=== PATIENT | female | born 1945 | race Two or more races ===

== ENCOUNTER → 2024-03-16 | Outpatient (CLI) | payer MEDICARE, MEDICAID, SELFPAY ==
[2024-03-16 14:14] LABS: Basophils % (Auto) 0 % (0-2.5); Eosinophils % (Auto) 0 % (0-10); Hematocrit 42.3 % (36.0-46.0); Hemoglobin 14.2 g/dL (12.0-16.0); Immature Granulocytes % (Auto) 0 % (0-0); Immature Granulocytes Auto 0.01 Thou/mm3 (0.00-0.00); Lymphocytes # (Auto) 0.4 Thou/mm3 (1.0-4.8); Lymphocytes % (Auto) 13 % (10-50); Mean Corpuscular HGB Conc 33.6 g/dl (31.0-37.0); Mean Corpuscular Volume 89 fL (80-100); Monocytes # (Auto) 0.4 Thou/mm3 (0.0-0.8); Monocytes % (Auto) 12 % (0-12); Neutrophils # (Auto) 2.3 Thou/mm3 (1.8-7.7); Neutrophils % (Auto) 75 % (37-80); Nucleated Red Blood Cell % 0 /100 WBC (0); RDW Standard Deviation 48.6 fL (36.4-46.3); Red Blood Count 4.74 Miln/mm3 (4.00-5.20)
[2024-03-16 14:22] LABS: Glucose Estimated Average 154 mg/dL (80-131)
[2024-03-16 14:31] LABS: Alanine Aminotransferase 49 U/L (10-49); Albumin/Globulin Ratio 1.6 (1.2-2.2); Alkaline Phosphatase 198 U/L (46-116); Anion Gap 7 (7-16); Aspartate Amino Transferase 91 U/L (0-34); BUN/Creatinine Ratio 19 Ratio (12-20); Bilirubin,Total 0.9 mg/dL (0.3-1.2); Blood Urea Nitrogen 19 mg/dL (9-23); Calcium 9.2 mg/dL (8.3-10.6); Calcium (Corrected) 9.2 mg/dL (8.5-10.1); Carbon Dioxide 29.6 mMol/L (20.0-31.0); Cardiac Risk Estimate 3.1 RATIO (3.7-5.6); Chloride 98 mMol/L (98-107); Cholesterol 135 mg/dL (132-200); Globulin 2.5 gm/dL (2.3-3.5); Glucose 146 mg/dL (74-106); HDL Cholesterol 43 mg/dL (40-60); LDL Cholesterol,Calculated 63 mg/dL (0-130); Magnesium 1.8 mg/dL (1.6-2.6); Osmolality,Calculated 275 (275-295); Potassium 4.7 mMol/L (3.4-5.1); Sodium 135 mMol/L (136-145); Total Protein 6.5 gm/dL (5.7-8.2); Triglycerides 145 mg/dL (30-150); eGFR 57 See Note
[2024-03-16 14:46] LABS: Platelet Count 28 Thou/mm3 (140-440)
[2024-03-16 14:53] LABS: Slide Review Platelets confirmed
[2024-03-16 15:25] LABS: Path Review Blood Smear Sent to Pathologist
[2024-03-26 06:46] LABS: Direct LDL* 48 mg/dL (<100)
== END | disposition home or self-care (01) ==
PROVIDERS: PCP Physician Assistant; Referring Provider Physician Assistant; Visit Provider Physician Assistant
DX: E11.9 Type 2 diabetes mellitus without complications (principal); E55.9 Vitamin D deficiency, unspecified; R42 Dizziness and giddiness
CPT/HCPCS: 36415; 80053; 80061; 81001; 82043; 82306; 82570; 83036; 83721; 83735; 84439; 84443; 85025

== ENCOUNTER → 2024-03-17 | Outpatient (CLI) | payer MEDICARE, MEDICAID, SELFPAY ==
[2024-03-17 12:12] LABS: Collection Type, Urine Clean Catch
[2024-03-17 13:37] LABS: Bacteria,Urine Rare; Bilirubin,Urine Negative (Negative); Blood,Urine Negative (Negative); Clarity,Urine Clear (Clear/Hazy); Color,Urine Yellow (Lt Yel-Yel); Culture Indicated,Urine Not Indicated; Glucose, Urine 4+ (Negative); Ketones,Urine Trace (Negative); Leukocyte Esterase,Urine Negative (Negative); Nitrite,Urine Negative (Negative); Protein,Urine 2+ (Neg - Trace); RBC,Urine 6 /hpf (0-3); Specific Gravity,Urine 1.038 (1.001-1.035); Squamous Epithelial Cell,Urine 2 /hpf (0-5); Urobilinogen,Urine Negative mg/dL (0.0-1.0); WBC,Urine 4 /hpf (0-5)
[2024-03-17 13:48] LABS: Creatinine MALB Rnd Ur 76 mg/dL (30-125)
[2024-03-17 14:14] LABS: Microalbumin Creat Ratio 1029 mg/gCrea (<30); Microalbumin, Random Urine 782 mg/L (0-300)
== END | disposition home or self-care (01) ==
PROVIDERS: PCP Physician Assistant; Referring Provider Physician Assistant; Visit Provider Physician Assistant
DX: E11.9 Type 2 diabetes mellitus without complications (principal); E55.9 Vitamin D deficiency, unspecified; R42 Dizziness and giddiness
CPT/HCPCS: 81001; 82043; 82570

== ENCOUNTER → 2024-11-19 | Outpatient (CLI) | payer MEDICARE, SELFPAY ==
--- NOTE | 2024-11-19 10:20 | XR_ITS ---
Examination: Bone densitometry Date and time of exam:November 19, 2024 1030 hours INDICATIONS: Menopause age 49 Technique: Lumbar spine and hip total bone mineralization values of an calculated. Peak reference and age match control results have been displayed. Findings: Lumbar spine total bone mineralization is0.913 gm/cm2. This is 1.2 standard deviations below peak reference. This is 1.5 standard deviations above age-matched controls. Hip total bone mineralization is 0.820 gm/cm2 This is 1.0 standard deviations below peak reference. This is 1.1 standard deviations above age-matched controls Impression: There is osteopenia based on lumbar spine measurements. There is osteopenia based on hip measurements
== END | disposition home or self-care (01) ==
PROVIDERS: Referring Provider Family Medicine; Visit Provider Family Medicine
DX: M85.89 Other specified disorders of bone density and structure, multiple sites (principal)
CPT/HCPCS: 77080

== ENCOUNTER 2025-03-19 01:48 | Inpatient (IN) | payer MEDICARE, MEDICAID, SELFPAY ==
[2025-03-19] VITALS (17 sets, daily range): BP systolic 116–142; BP diastolic 52–83; PULSE 62–92; RESP 12–93; TEMP 36.5–36.8; O2SAT 90–100
--- NOTE | 2025-03-19 02:17 | PD.EDURI ---
Upper Respiratory Inf. RME/HPI General Chief Complaint: Flu Like Symptoms Stated Complaint: COUGHING , A LOT OF PHLEGM Time Seen by Provider: 03/19/25 02:29 Arrival date/time: 03/19/25 01:48 RME / HPI RME / HPI Narrative: See [facility] for Dr. Freire's HPI Documentation. Related Data Home Medications ?Medication ?Instructions ?Recorded ?Confirmed Metformin Hcl 1,000 mg PO BID ##0 06/17/12 03/17/21 amlodipine 5 mg tablet 5 mg PO QDAY 03/19/19 03/17/21 losartan 100 mg tablet 100 mg PO QDAY 03/19/19 03/17/21 metoprolol succinate 100 mg 100 mg PO HS 03/19/19 03/17/21 tablet,extended release 24 hr pregabalin 200 mg capsule 200 mg PO BID 03/19/19 03/17/21 atorvastatin 20 mg tablet (Lipitor) 20 mg PO QDAY 03/17/21 03/17/21 cetirizine 10 mg tablet 10 mg PO QDAY 03/17/21 03/17/21 clonazepam 1 mg tablet 1 mg PO HS PRN Anxiety 03/17/21 03/17/21 Allergies Allergy/AdvReac Type Severity Reaction Status Date / Time No Known Allergies Allergy Verified 03/19/21 13:48 Review of Systems Review of Systems Systems Reviewed: All systems reviewed, normal except as documented Past Medical History Past Medical History NEUROLOGIC: Positive Neurological Disorders and Peripheral Neuropathy CARDIAC: Positive Cardiac Disorders ( leaking artery following a salesforce consultant), Hypercholesterolemia and Hypertension GASTROINTESTINAL: Positive Gastrointestinal Disorders, Gastrointestinal Bleed, Ulcer and Gastroesophageal Reflux Disease GENITOURINARY: Positive Genitourinary Disorders (uti x3) MUSCULOSKELETAL: Positive Musculoskeletal Disorders and Arthritis ENT: Positive Cataracts ENDOCRINE: Positive Endocrine Disorders and Diabetes Mellitus Type 2 HEMATOLOGIC: Positive Blood Disorders and Anemia PSYCHO/SOCIAL: Positive Anxiety ED Exam Narrative Physical exam: See [facility] for Dr. Freire's Physical Exam Documentation. Course Quality Measures none Orders Category Date Time Status Admit to Inpatient Status Routine Admission 03/19/25 04:55 Active Patient Condition Routine Admission 03/19/25 04:55 Ordered Activity as Tolerated Routine Care 03/19/25 04:56 Ordered COVID-19 Screening Questionnaire NOW Care 03/19/25 04:11 Active Continuous Pulse Oximetry NOW Care 03/19/25 04:54 Active Decision to Admit X1 Care 03/19/25 04:11 Completed EKG (ED ONLY) *Do not use* NOW Care 03/19/25 02:21 Completed Notify provider NEEDED Care 03/19/25 04:55 Active Saline [Insert IV] NOW Care 03/19/25 02:20 Active Straight [In and Out Catheter] X1 Care 03/19/25 02:20 Active Diet Regular Diet 03/19/25 Breakfast Active EKG (ED Only) Stat Exams 03/19/25 02:21 Draft XR chest 1V portable Stat Exams 03/19/25 02:21 Taken ABG [Arterial Blood Gas] Stat Lab 03/19/25 02:21 Completed BNP [B-Type Natriuretic Peptide] Stat Lab 03/19/25 02:50 Completed Bilirubin,Direct Stat Lab 03/19/25 02:50 Completed Blood Culture (Lab) Stat Lab 03/19/25 02:50 Received CBC Stat Lab 03/19/25 02:50 Completed CMP [Comprehensive Metabolic Panel] Stat Lab 03/19/25 02:50 Completed COVID-19 Antigen (In-House) Stat Lab 03/19/25 03:27 Completed CRP [C-Reactive Protein] Stat Lab 03/19/25 02:50 Completed D-Dimer Stat Lab 03/19/25 02:50 Completed ESR [Sed Rate (ESR)] Stat Lab 03/19/25 02:50 Completed Hemoglobin A1C [Glycohemoglobin w (eAG)] Stat Lab 03/19/25 02:50 Completed Influenza A & B Rapid Panel Stat Lab 03/19/25 03:27 Completed Lactate (Lactic Acid) Stat Lab 03/19/25 02:50 Completed Magnesium Stat Lab 03/19/25 02:50 Completed Procalcitonin Stat Lab 03/19/25 02:50 Completed TSH [Thyroid Stimulating Hormone] Stat Lab 03/19/25 02:50 Completed Troponin I Stat Lab 03/19/25 02:50 Completed UA, C/S IF [Urinalysis, C/S if Indicated] Stat Lab 03/19/25 04:00 Completed Urine Culture Stat Lab 03/19/25 04:00 Received ACETAMINOPHEN w/COD 300-30 [Tylenol w/Cod #3] Med 03/19/25 02:20 Discontinued 2 tab PO X1 ONE Acetaminophen Tab [Tylenol Tab] Med 03/19/25 04:54 Active 650 mg PO Q6H PRN Albuterol/Ipratr Rt Johanna [Duoneb Rt Johanna] Med 03/19/25 07:00 Active 3 ml INH Q6HRRT Albuterol/Ipratr Rt Johanna [Duoneb Rt Johanna] Med 03/19/25 02:20 Discontinued 3 ml INH X1 ONE Azithromycin Inj [Zithromax Inj] 500 mg Med 03/19/25 02:57 Discontinued Sodium Chloride 0.9% 250 ml [Ns] 250 ml IV X1 Docusate Sod [Colace] Med 03/19/25 09:00 Active 100 mg PO QDAY HYDROcodone*/APAP 5/325 [[place] 5/325] Med 03/19/25 04:54 Active 1 tab PO Q4HR PRN MethylPREDNISolone.* [SoluMEDROL Inj] Med 03/19/25 02:20 Discontinued 125 mg IVP X1 ONE Ondansetron Inj [Zofran Inj] Med 03/19/25 04:54 Active 4 mg IVP Q6H PRN Ondansetron Inj [Zofran Inj] Med 03/19/25 02:20 Discontinued 4 mg IVP X1 ONE Pantoprazole Inj [Protonix Inj] Med 03/19/25 09:00 Active 40 mg IVP QDAY cefTRIAXone/D5w 1gm IV premix [Rocephin/D5w 1gm IV Med 03/19/25 02:57 Discontinued premix] 1 gm in 50 ml IV X1 Code Status Routine Oth 03/19/25 04:54 Ordered Oxygen Delivery DAILY RT 03/19/25 04:56 Active Vital Signs Vital signs: Vital Signs Temperature 98.0 F 03/19/25 02:08 Pulse Rate 63 03/19/25 02:08 Respiratory Rate 22 H 03/19/25 02:08 Blood Pressure 129/74 03/19/25 02:08 Pulse Oximetry (%) 90 L 03/19/25 02:08 Oxygen Delivery Method Room Air 03/19/25 02:08 Upper Respiratory Infection MDM Narrative MDM Narrative:: This section includes all my notes and documentations, including HPI, PE, and ED course. Aubrey Freire MD HPI: 79 y/o female with Hx of HTN and Type II DM presents with about 1 week history of worsening cough, productive cough, purulent sputum, and dyspnea. With subjective fever. No other complaints. ROS: All negative except as documented in HPI. Physical Exam: General: Alert and oriented. Hacking cough noted. Hypoxia noted. Eyes: Conjunctivae and lids clear. ENT: No nasal congestion. Pharynx normal. TM normal bilaterally. Neck: Supple. Heart: RRR. Lungs: In respiratory distress. Decreased air movement with bilateral severe wheezing. Abdomen: Soft and nontender. Normal bowel sounds. No distension. No rebound or guarding. Back: No CVA tenderness. Skin: Warm and dry. Neuro: Alert and oriented X 3. I reviewed all diagnostic test results: My interpretation of the EKG is: Sinus rhythm (61 bpm) with right BBB and nonspecific ST-T changes. My interpretation of the chest x-ray is infiltrates. Blood tests remarkable for ESR 80, CRP 6.9. ABG showed pH 7.37, pCO2 46, pO2 58, pHCO3 27. UA showed positive nitrite, positive leukocyte esterase, 5 RBC, 174 WBC, and bacteria. Covid/Influenza are negative. At this point, diagnoses include: Acute Respiratory Failure with Hypoxia Pneumonia UTI Treatment here included: Oxygen DuoNeb Solu-Medrol 125 mg IV Zofran 4 mg IV Rocephin 1 g IV Zithromax 500 mg IV No significant improvement noted. I discussed the case with our hospitalist. About the presentation and exam and diagnostics and treatments here. And need of further care in the hospital. Will accept the patient. Aubrey Freire MD Patient data External records reviewed:: [facility] previous records (Reviewed most recent ED records from 03/16/21. Patient was seen for Acute UTI.) Clinical information provided by:: patient Social determinants that could affect healthcare access:: none Patient has the following chronic illnesses:: Peripheral Neuropathy, Hypercholesterolemia, Hypertension, Gastrointestinal Bleed, Ulcer, Gastroesophageal Reflux Disease, Arthritis, Cataracts, Diabetes Mellitus Type 2, Anemia, Anxiety How is presenting disease/condition affected by chronic disease/condition?: exacerbated by Evaluation data The following diagnostics were reviewed and interpreted by me:: EKG tracing(s) (My interpretation of the EKG is: Sinus rhythm (61 bpm) with right BBB and nonspecific ST-T changes. Aubrey Freire MD) Lab and/or radiology exams considered but not ordered:: None Interpretation Summary: I reviewed all diagnostic test results: My interpretation of the EKG is: Sinus rhythm (61 bpm) with right BBB and nonspecific ST-T changes. My interpretation of the chest x-ray is infiltrates. Blood tests remarkable for ESR 80, CRP 6.9. ABG showed pH 7.37, pCO2 46, pO2 58, pHCO3 27. UA showed positive nitrite, positive leukocyte esterase, 5 RBC, 174 WBC, and bacteria. Covid/Influenza are negative. Medications / Prescriptions Medications or Prescriptions considered but not ordered:: None Medication administrations:: Medication Administration History Acetaminophen (Acetaminophen 325 Mg Tablet) 650 mg PO Q6H PRN PRN Reason: Fever >100.4 or pain 1-3 Stop: 04/18/25 04:53 Hydrocodone Bitart/Acetaminophen (Hydrocodone/Apap 5/325 Tablet) 1 tab PO Q4HR PRN PRN Reason: PAIN SCALE 4-6 (Moderate Stop: 03/24/25 04:53 Albuterol/Ipratropium (Albuterol/Ipratropium (Duoneb) Rt Johanna 3 Ml Nebu) 3 ml INH Q6HRRT TAVO Stop: 04/18/25 06:59 Amlodipine Besylate (Amlodipine Besylate 5 Mg Tablet) 10 mg PO QDAY [facility] Stop: 04/18/25 08:59 Atorvastatin Calcium (Atorvastatin Calcium 10 Mg Tablet) 40 mg PO QDAY [facility] Stop: 04/18/25 08:59 Dextrose (Dextrose 50%-Water Inj 50 Ml Syringe) 25 ml IV Q15MIN PRN PRN Reason: BG 50-70 responsive npo pt Stop: 04/18/25 05:07 Dextrose (Dextrose 50%-Water Inj 50 Ml Syringe) 50 ml IV Q15MIN PRN PRN Reason: BG <50 OR BG <70 & pt unresponsive Stop: 04/18/25 05:07 Docusate Sodium (Docusate Sod 100 Mg Capsule) 100 mg PO QDAY [facility]; Protocol Stop: 04/18/25 08:59 Duloxetine HCl (Duloxetine Hcl 30 Mg Capsule) 30 mg PO QDAY [facility] Stop: 04/18/25 08:59 Glucagon (Glucagon Inj 1 Mg Vial) 1 mg IM Q15MIN PRN PRN Reason: BG <70, and no IV access Heparin Sodium (Porcine) (Heparin Sod Inj 5000 Unit/Ml Vial) 5,000 unit SC Q12HR [facility] Stop: 04/02/25 08:59 Ceftriaxone Sodium/Dextrose (Rocephin/D5w 1gm Iv Premix) 1 gm in 50 mls @ 100 mls/hr IV QDAY [facility] Stop: 03/27/25 08:59 Azithromycin 500 mg/ Sodium (Chloride) 250 mls @ 250 mls/hr IV QDAY [facility] Stop: 03/27/25 08:59 Insulin Human Lispro (Insulin Lispro (Admelog) 1 Unit/0.01 Ml Unit) 0 unit SC ACHS [facility]; Protocol Stop: 04/18/25 07:29 Losartan Potassium (Losartan Potassium 25 Mg Tablet) 100 mg PO QDAY [facility] Stop: 04/18/25 08:59 Metoprolol Succinate (Metoprolol Succinate Xl 25 Mg Tabcr) 100 mg PO HS [facility] Stop: 04/18/25 20:59 Ondansetron HCl (Ondansetron Inj 2 Mg/Ml Inj 2 Ml) 4 mg IVP Q6H PRN; Protocol PRN Reason: NAUSEA OR VOMITING Stop: 04/18/25 04:53 Pantoprazole Sodium (Pantoprazole Inj 40 Mg Vial) 40 mg IVP QDAY [facility] Stop: 04/18/25 08:59 Prednisone (Prednisone 20 Mg Tablet) 40 mg PO QDAY [facility] Stop: 04/18/25 08:59 Pregabalin (Pregabalin 75 Mg Capsule) 150 mg PO TID [facility] Stop: 04/18/25 05:59 Discontinued Medications Acetaminophen/Codeine Phosphate (Acetaminophen W/Cod 300-30 Tablet) 2 tab PO X1 ONE Stop: 03/19/25 02:21 Last Admin: 03/19/25 02:39 Dose: 2 tab Documented By: HOLA Albuterol/Ipratropium (Albuterol/Ipratropium (Duoneb) Rt Johanna 3 Ml Nebu) 3 ml INH X1 ONE Stop: 03/19/25 02:21 Last Admin: 03/19/25 02:57 Dose: 3 ml Documented By: MANUEL Azithromycin 500 mg/ Sodium (Chloride) 250 mls @ 250 mls/hr IV X1 ONE Stop: 03/19/25 03:56 Last Infusion: 03/19/25 05:04 Dose: Infused Documented By: Admin: 03/19/25 03:48 Dose: 250 mls/hr Documented By: HOLA Ceftriaxone Sodium/Dextrose (Rocephin/D5w 1gm Iv Premix) 1 gm in 50 mls @ 100 mls/hr IV X1 ONE Stop: 03/19/25 03:26 Last Infusion: 03/19/25 03:47 Dose: Infused Documented By: Admin: 03/19/25 03:14 Dose: 100 mls/hr Documented By: STORMY Methylprednisolone Sodium Succinate (Methylprednisolone Sod Succ 62.5 Mg/Ml 2ml Vial) 125 mg IVP X1 ONE Stop: 03/19/25 02:21 Last Admin: 03/19/25 02:40 Dose: 125 mg Documented By: HOLA Ondansetron HCl (Ondansetron Inj 2 Mg/Ml Inj 2 Ml) 4 mg IVP X1 ONE; Protocol Stop: 03/19/25 02:21 Last Admin: 03/19/25 02:40 Dose: 4 mg Documented By: HOLA Treatment here from me included: Oxygen DuoNeb Solu-Medrol 125 mg IV Zofran 4 mg IV Rocephin 1 g IV Zithromax 500 mg IV Consultations Consultation(s) initiated? (list below): Yes Consultation #1 (Physician, Specialty, Details): I discussed the case with our hospitalist. About the presentation and exam and diagnostics and treatments here. And need of further care in the hospital. Will accept the patient. Time: 04:03 Diagnosis Upper Respiratory Differential Diagnosis: upper respiratory infection, viral infection, bronchitis, influenza, pharyngitis and other (Pneumonia) Most likely diagnosis given after review of the tests above:: Acute Respiratory Failure with Hypoxia Pneumonia UTI Admission Indicated Admission indicated?: indicated Explain why admission is indicated or not indicated:: Acute Respiratory Failure with Hypoxia Pneumonia UTI Admission Request Was there a request for admission?: Yes Admission Attestation Admission request attestation: Discussed case with Hospitalist service regarding admission. Discussed patients ED course, exam findings, labs, and radiology results. Agreed to accept the patient for admission. Disposition Plan Disposition Plan: Admit Discharge Plan Plan Patient Disposition: Admit Acute Care w/in Hospital Problem List Clinical Impression: Acute respiratory failure with hypoxia, Pneumonia, Acute UTI
--- NOTE | 2025-03-19 02:21 | XR_ITS ---
EXAMINATION: AP chest single view TECHNIQUE: AP portable upright chest single view Date and time: March 19, 2025, 0239 hours, comparison September 18, 2023 INDICATIONS: Shortness of breath coughing beginning 2 days ago. FINDINGS: Mild enlargement cardiac contour Prominent central vascular congestion Pneumonia right base Prominent osteopenia IMPRESSION: Pneumonia right base Mild heart failure
--- NOTE | 2025-03-19 02:21 | EKG_ITS ---
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1945 Requested By: Aubrey Wilder Order Number: [id number] Reading MD: Aubrey Wilder Measurements Intervals [place] Rate: 61 P: 47 PA: 174 QRS: -64 QRSD: 148 T: 16 QT: 463 QTc: 467 Interpretive Statements SINUS RHYTHM RIGHT BUNDLE BRANCH BLOCK [120+ ms QRS DURATION, UPRIGHT V1, 40+ ms S IN I/aVL/V4/V5/V6] LEFT ANTERIOR FASCICULAR BLOCK [QRS AXIS <= -45, QR IN I, RS IN II] MODERATE VOLTAGE CRITERIA FOR LVH, CONSIDER NORMAL VARIANT [MEETS CRITERIA IN ONE OF: R(aVL), S(V1), R(V5), R(V5/V6)+S(V1)] POSSIBLE ANTEROSEPTAL MYOCARDIAL INFARCTION , OF INDETERMINATE AGE [30 ms Q WAVE IN V1-V4] Compared to ECG 03/19/2019 16:42:09 Myocardial infarct finding now present Sinus bradycardia no longer present T-wave abnormality no longer present Possible ischemia no longer present /store/[id number]
[2025-03-19] MEDS: ACETAMINOPHEN w/COD 300-30 TABLET 2 TAB PO (02:39)
[2025-03-19] MEDS: ONDANSETRON INJ 2 MG/ML INJ 2 ML 4 MG IVP (02:40)
[2025-03-19] MEDS: MethylPREDNISolone SOD SUCC 62.5 MG/ML 2ML VIAL 125 MG IVP (02:40)
[2025-03-19] MEDS: ALBUTEROL/IPRATROPIUM (Duoneb) RT SOL 3 ML NEBU INH ×4 (02:57→19:06)
[2025-03-19 03:02] LABS: Lactate (Lactic Acid) 1.8 mMol/L (0.4-2.0)
[2025-03-19 03:10] LABS: Sed Rate (ESR) 80 mm/hr (0-30)
[2025-03-19 03:13] LABS: Basophils # (Auto) 0.0 Thou/mm3 (0.0-0.2); Basophils % (Auto) 0 % (0-2.5); Eosinophils # (Auto) 0.3 Thou/mm3 (0.0-0.5); Eosinophils % (Auto) 4 % (0-10); Hematocrit 41.1 % (36.0-46.0); Hemoglobin 12.8 g/dL (12.0-16.0); Immature Granulocytes Auto 0.01 Thou/mm3 (0.00-0.00); Lymphocytes # (Auto) 1.1 Thou/mm3 (1.0-4.8); Lymphocytes % (Auto) 18 % (10-50); Mean Corpuscular HGB Conc 31.1 g/dl (31.0-37.0); Mean Corpuscular Hemoglobin 25.8 pg (25.0-35.0); Mean Corpuscular Volume 83 fL (80-100); Monocytes # (Auto) 0.6 Thou/mm3 (0.0-0.8); Monocytes % (Auto) 10 % (0-12); Neutrophils # (Auto) 4.1 Thou/mm3 (1.8-7.7); Neutrophils % (Auto) 67 % (37-80); Nucleated Red Blood Cell # 0.00 Thou/mm3 (0.00-0.00); Nucleated Red Blood Cell % 0 /100 WBC (0); Platelet Count 253 Thou/mm3 (140-440); RDW Standard Deviation 53.1 fL (36.4-46.3); Red Blood Count 4.97 Miln/mm3 (4.00-5.20); White Blood Count 6.1 Thou/mm3 (3.6-11.0)
[2025-03-19] MEDS: cefTRIAXone/D5w 1gm IV premix 1 GM/50 ML BAG IV (03:14)
[2025-03-19 03:22] LABS: Base Excess 1 (-3-3); HCO3 27 mEq/L (20-26); Inspired O2, VO2 Liters 2 L/min; Inspired Oxygen, FIO2 21 %; O2 Saturation 90 % (91-98); PCO2 46 mmHg (32.0-48.0); pH, Arterial 7.37 (7.35-7.45)
[2025-03-19 03:24] LABS: Allen Test Performed/OK; PO2 58 mmHg (83-108); Puncture Site Right Radial
[2025-03-19 03:30] LABS: D-Dimer 475 ng/mL (<600)
[2025-03-19 03:32] LABS: Alanine Aminotransferase 19 U/L (10-49); Albumin, Serum 4.9 gm/dL (3.4-4.8); Albumin/Globulin Ratio 1.7 (1.2-2.2); Alkaline Phosphatase 110 U/L (46-116); Anion Gap 10 (7-16); Aspartate Amino Transferase 35 U/L (0-34); BUN/Creatinine Ratio 12 Ratio (12-20); Bilirubin,Direct 0.1 mg/dL (0.0-0.3); Bilirubin,Total 0.6 mg/dL (0.3-1.2); Blood Urea Nitrogen 11 mg/dL (9-23); C-Reactive Protein 6.9 mg/dL (0.0-0.9); Calcium 9.4 mg/dL (8.3-10.6); Calcium (Corrected) 9.4 mg/dL (8.5-10.1); Carbon Dioxide 27.8 mMol/L (20.0-31.0); Chloride 103 mMol/L (98-107); Creatinine (Component) 0.9 mg/dL (0.6-1.3); Globulin 2.9 gm/dL (2.3-3.5); Glucose 130 mg/dL (74-106); Magnesium 1.7 mg/dL (1.6-2.6); Osmolality,Calculated 282 (275-295); Potassium 3.9 mMol/L (3.4-5.1); Procalcitonin 0.08 ng/ml (0.0-0.49); Sodium 141 mMol/L (136-145); Thyroid Stimulating Hormone 4.20 uIU/mL (0.55-4.78); Total Protein 7.8 gm/dL (5.7-8.2); Troponin I < 0.020 ng/mL (0.0-0.045); eGFR > 60 See Note
[2025-03-19 03:40] LABS: Glucose Estimated Average 157 mg/dL (80-131); Hemoglobin A1C 7.1 % Hgb (4.8-6.0)
[2025-03-19] MEDS: AZITHROMYCIN INJ 500 MG in SODIUM CHLORIDE 0.9% 250 ML 250 ML 250 MG IV (03:48)
[2025-03-19 03:49] LABS: COVID-19 Antigen (In-House) Negative (Negative); Influenza A Ag Negative; Influenza B Ag Negative
[2025-03-19 04:39] LABS: Collection Type, Urine Clean Catch
[2025-03-19 04:50] LABS: Bacteria,Urine Rare; Bilirubin,Urine Negative (Negative); Blood,Urine Negative (Negative); Clarity,Urine Turbid (Clear/Hazy); Color,Urine Lt-Yellow (Lt Yel-Yel); Glucose, Urine 4+ (Negative); Hyaline Casts,Urine < 1 /hpf (0-1); Ketones,Urine Negative (Negative); Leukocyte Esterase,Urine Positive (Negative); Nitrite,Urine Positive (Negative); PH,Urine 6.0 (5.0-7.0); Protein,Urine 1+ (Neg - Trace); RBC,Urine 5 /hpf (0-3); Specific Gravity,Urine 1.029 (1.001-1.035); Squamous Epithelial Cell,Urine 5 /hpf (0-5); Urobilinogen,Urine Negative mg/dL (0.0-1.0); WBC,Urine 174 /hpf (0-5)
[2025-03-19 04:51] LABS: Culture Indicated,Urine Yes
--- NOTE | 2025-03-19 05:04 | PD.RESHP ---
Documentation for date of: 03/19/25 HPI History of Present Illness History of present illness: 79 y/o female with Hx of HTN, hypercholesterolemia Type II DM, who lived with an excessive smoker presents with fever, cough, and shortness of breath x 5 days admitted for acute hypoxic respiratory failure. ED Course Summary Vitals: BP 129/74 HR 63 RR22 T 98F O2 90%RA Labs: WBC 6.1 ESR 80 D-dimer 475 A1C 7.1 AST 35 CRP 6.9 Procal 0.08 TSH 4.20 ABG pH 7.37 pCO2 46 pO2 58 (L) HCO3 27 (H) O2 sat 90% (L) UA turbid +1 protein +4 glucose 5 RBC 174 WBC Nitrite+ LE + Imaging: CXR pending read, Resident Rebel read: appears bibasilar pneumonia, hazy infiltrates with bilateral opacities Treatment: azithro 500, ceftriaxone 1g duonebs, zofran, methylprednisone 125, codeine Upon initial examination patient has her daughter in the room, a qualified nurse software engineer advisor was present for uzbek speaking interview. She reports coughing since last Friday (4 days ago) and a wheeze appeared 3 days ago. Her wheezing is worse in the evening. Her cough produces clear mucous. She reports subjective fever at home for 2 days that improved with tylenol. She also endorses a headache. She denies chills, night sweats, chest pain, SOB, hemoptysis, sick contacts, history of heart failure or arrythmias, and denies history of COPD or asthma. However, her who has was a excessive smoker. Her cough has improved with cough syrup, however her wheezing is much worse per the daughter, which is why they decided to bring her in to the hospital. 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 Exam Vital Signs Temp Pulse Resp BP Pulse Ox O2 Del Method O2 Flow Rate 98.2 F 66 20 138/68 H 94 L Nasal Cannula 2 03/19/25 04:14 03/19/25 04:14 03/19/25 04:14 03/19/25 04:14 03/19/25 04:14 03/19/25 04:14 03/19/25 04:14 Narrative Exam GENERAL APPEARANCE: AOx3. NAD, activity normal for age, well developed/ well nourished, no cyanosis, pallor, or diaphoresis. HEENT: Normocephalic atraumatic, no facial trauma, neck is supple. Lids/conjunctiva normal. Mucous membranes moist, nares normal, lips/teeth normal uvula midline without oral pharyngeal erythema, exudate or swelling TMs normal bilaterally. No lymphangitis/lymphedema. CARDIAC: Regular rate and rhythm, S1+S2 heard. No murmurs, rubs, or gallops noted RESPIRATORY: Bronchial breath sounds and diffuse bilateral wheezes ABDOMINAL: NBS. Soft, ND/NT. No evidence of fluid wave. No pulsatile masses on exam, rebound tenderness, Snow sign or pain over Mcburney's point. MUSCLES/EXTREMITIES: No abnormal range of motion, no swelling. DERM: Warm, pink and dry. No rashes, dermatoses, petechiae or lesions. NEUROLOGICAL: Speech is clear and appropriate. Normal level of consciousness. Gait and coordination are normal. 5/5 strength in all extremities. PSYCH: Normal mood and affect. Judgement/competence is appropriate Results: Labs 03/19/25 05:00 03/19/25 04:07 Labs: Short CBC 03/19/25 Range/Units 02:50 WBC 6.1 (3.6-11.0) Thou/mm3 Hgb 12.8 (12.0-16.0) g/dL Hct 41.1 (36.0-46.0) % Plt Count 253 (140-440) Thou/mm3 BMP 03/19/25 02:50 Sodium 141 Potassium 3.9 Chloride 103 Carbon Dioxide 27.8 BUN 11 Creatinine 0.9 Glucose 130 H Calcium 9.4 Cardiac Enzymes 03/19/25 Range/Units 02:50 Troponin I < 0.020 (0.0-0.045) ng/mL Liver Function 03/19/25 Range/Units 02:50 Total Bilirubin 0.6 (0.3-1.2) mg/dL Direct Bilirubin 0.1 (0.0-0.3) mg/dL AST 35 H (0-34) U/L ALT 19 (10-49) U/L Alkaline Phosphatase 110 (46-116) U/L Albumin 4.9 H (3.4-4.8) gm/dL Urine 03/19/25 Range/Units 04:00 Urine Color Lt-Yellow (Lt Yel-Yel) Urine Clarity Turbid A (Clear/Hazy) Urine pH 6.0 (5.0-7.0) Ur Specific [place] 1.029 (1.001-1.035) Urine Protein 1+ A (Neg - Trace) Urine Glucose (UA) 4+ A (Negative) ABG Interpretation ABG results: 03/19/25 02:21 ABG pH 7.37 ABG pCO2 46 ABG pO2 58 L* ABG HCO3 27 H ABG O2 Saturation 90 L ABG Base Excess 1 Quality Measures Quality Measures VTE prophylaxis Advance care planning discussed with:: patient and child Medications Home Medications and Allergies Home Medications ?Medication ?Instructions ?Recorded ?Confirmed ?Type amlodipine 5 mg tablet 10 mg PO QDAY 03/19/19 03/19/25 History losartan 100 mg tablet 100 mg PO QDAY 03/19/19 03/19/25 History metoprolol succinate 100 mg 100 mg PO HS 03/19/19 03/19/25 History tablet,extended release 24 hr pregabalin 200 mg capsule 150 mg PO BID 03/19/19 03/19/25 History atorvastatin 20 mg tablet (Lipitor) 40 mg PO QDAY 03/17/21 03/19/25 History cetirizine 10 mg tablet 10 mg PO QDAY 03/17/21 03/19/25 History duloxetine 30 mg capsule,delayed 30 mg PO QDAY 03/19/25 03/19/25 History release empagliflozin 12.5 mg-metformin ER 1 tab PO BID 03/19/25 03/19/25 History 1,000 mg tablet,extended rel 24 hr (Synjardy XR) omeprazole 40 mg capsule,delayed 40 mg PO QDAY 03/19/25 03/19/25 History release Allergies Allergy/AdvReac Type Severity Reaction Status Date / Time No Known Allergies Allergy Verified 03/19/21 13:48 Visit Medications Acetaminophen (Acetaminophen 325 Mg Tablet) 650 mg PO Q6H PRN PRN Reason: Fever >100.4 or pain 1-3 Stop: 04/18/25 04:53 Hydrocodone Bitart/Acetaminophen (Hydrocodone/Apap 5/325 Tablet) 1 tab PO Q4HR PRN PRN Reason: PAIN SCALE 4-6 (Moderate Stop: 03/24/25 04:53 Albuterol/Ipratropium (Albuterol/Ipratropium (Duoneb) Rt Johanna 3 Ml Nebu) 3 ml INH Q6HRRT [facility] Stop: 04/18/25 06:59 Docusate Sodium (Docusate Sod 100 Mg Capsule) 100 mg PO QDAY [facility]; Protocol Stop: 04/18/25 08:59 Heparin Sodium (Porcine) (Heparin Sod Inj 5000 Unit/Ml Vial) 5,000 unit SC Q12HR [facility]AVO Stop: 04/02/25 08:59 Ceftriaxone Sodium/Dextrose (Rocephin/D5w 1gm Iv Premix) 1 gm in 50 mls @ 100 mls/hr IV QDAY [facility] Stop: 03/27/25 08:59 Azithromycin 500 mg/ Sodium (Chloride) 250 mls @ 250 mls/hr IV QDAY [facility] Stop: 03/27/25 08:59 Ondansetron HCl (Ondansetron Inj 2 Mg/Ml Inj 2 Ml) 4 mg IVP Q6H PRN; Protocol PRN Reason: NAUSEA OR VOMITING Stop: 04/18/25 04:53 Pantoprazole Sodium (Pantoprazole Inj 40 Mg Vial) 40 mg IVP QDAY [facility] Stop: 04/18/25 08:59 Prednisone (Prednisone 20 Mg Tablet) 40 mg PO QDAY [facility] Stop: 04/18/25 08:59 Discontinued Medications Acetaminophen/Codeine Phosphate (Acetaminophen W/Cod 300-30 Tablet) 2 tab PO X1 ONE Stop: 03/19/25 02:21 Last Admin: 03/19/25 02:39 Dose: 2 tab Albuterol/Ipratropium (Albuterol/Ipratropium (Duoneb) Rt Johanna 3 Ml Nebu) 3 ml INH X1 ONE Stop: 03/19/25 02:21 Last Admin: 03/19/25 02:57 Dose: 3 ml Azithromycin 500 mg/ Sodium (Chloride) 250 mls @ 250 mls/hr IV X1 ONE Stop: 03/19/25 03:56 Last Infusion: 03/19/25 05:04 Dose: Infused Ceftriaxone Sodium/Dextrose (Rocephin/D5w 1gm Iv Premix) 1 gm in 50 mls @ 100 mls/hr IV X1 ONE Stop: 03/19/25 03:26 Last Infusion: 03/19/25 03:47 Dose: Infused Methylprednisolone Sodium Succinate (Methylprednisolone Sod Succ 62.5 Mg/Ml 2ml Vial) 125 mg IVP X1 ONE Stop: 03/19/25 02:21 Last Admin: 03/19/25 02:40 Dose: 125 mg Ondansetron HCl (Ondansetron Inj 2 Mg/Ml Inj 2 Ml) 4 mg IVP X1 ONE; Protocol Stop: 03/19/25 02:21 Last Admin: 03/19/25 02:40 Dose: 4 mg Assessment & Plan Plan 79 y/o female with Hx of HTN, hypercholesterolemia, Type II DM, who lived with an excessive smoker presents with fever, cough, and shortness of breath x 5 days admitted for acute hypoxic respiratory failure. #AHRF most likely 2/2 #Bronchitis Patient denies history of COPD or asthma, wheezing is worse at night than the morning. Lived with a smoker for many decades. On physical exam bronchial breath sounds and diffuse bilateral wheezes. ABG pH 7.37 pCO2 46 pO2 58 (L) HCO3 27 (H) O2 sat 90% (L). Plan: -Ceftriaxone 1g IV QD (03/19 - -Azithromycin 500 (03/19 - -Duonebs Q6 -Prednisone 40mg PO QD -FUP blood cx:___ #UTI - asymptomatic Patient did not endorse any dysuria. Is taking synjardy. UA turbid +1 protein +4 glucose 5 RBC 174 WBC Nitrite+ LE +. Plan: -Ceftiaxone will cross cover -FUP Urine cx:___ #HTN Plan: -Continue home amlodipine 10mg P OQD -Losartan 100mg PO QD -Metoprolol 100mg PO HS #T2DM A1C 7.1. Patient thinks she is pre-diabetic. Plan: -Education -ISS #Hypercholesterolemia Plan: -Continue Atorvastatin 40mg PO QD #Neuropathy Has neuronal foot pain and itching Plan: -Continue home pregabalin 150mg TID -Continue home duloxetine 30mg PO QD Health Maintenance: Code status: Full Code DVT prophylaxis: Heparin SubQ GI prophylaxis: Protonix 40 Diet: Carb consistent [place]: None Lines: PIV Supplemental O2: NC PRN [facility] Patient seen and reviewed with attending Dr. Sharp. Note written by Gerald Luque MD PGY-1 Attending Provider Attestation/Addendum After examination of the patient and review of the clinical data I feel that this patient needs admission to the hospital for further treatment/evaluation. Plan of care discussed with patient and is in agreement. I Ovidio Sharp MD, attest that I was physically present for oscar portions of evaluation, and examined patient, labs and imagings and plan of care were discussed with IM residents team, and I agree with the findings and plans documented above.
[2025-03-19 05:23] LABS: B-Type Natriuretic Peptide 44 pg/mL (0-100)
[2025-03-19] MEDS: PREGABALIN 75 MG CAPSULE 150 MG PO ×3 (06:15→21:15)
[2025-03-19 06:22] LABS: Basophils # (Auto) 0.0 Thou/mm3 (0.0-0.2); Basophils % (Auto) 0 % (0-2.5); Eosinophils # (Auto) 0.2 Thou/mm3 (0.0-0.5); Eosinophils % (Auto) 3 % (0-10); Hematocrit 38.9 % (36.0-46.0); Hemoglobin 12.2 g/dL (12.0-16.0); Immature Granulocytes Auto 0.01 Thou/mm3 (0.00-0.00); Lymphocytes # (Auto) 1.6 Thou/mm3 (1.0-4.8); Lymphocytes % (Auto) 22 % (10-50); Mean Corpuscular HGB Conc 31.4 g/dl (31.0-37.0); Mean Corpuscular Hemoglobin 26.2 pg (25.0-35.0); Mean Corpuscular Volume 84 fL (80-100); Monocytes # (Auto) 0.5 Thou/mm3 (0.0-0.8); Monocytes % (Auto) 7 % (0-12); Neutrophils # (Auto) 4.9 Thou/mm3 (1.8-7.7); Neutrophils % (Auto) 68 % (37-80); Nucleated Red Blood Cell # 0.00 Thou/mm3 (0.00-0.00); Nucleated Red Blood Cell % 0 /100 WBC (0); Platelet Count 230 Thou/mm3 (140-440); RDW Standard Deviation 54.1 fL (36.4-46.3); Red Blood Count 4.65 Miln/mm3 (4.00-5.20); White Blood Count 7.2 Thou/mm3 (3.6-11.0)
[2025-03-19 06:40] LABS: Alanine Aminotransferase 17 U/L (10-49); Albumin, Serum 4.7 gm/dL (3.4-4.8); Albumin/Globulin Ratio 1.9 (1.2-2.2); Alkaline Phosphatase 103 U/L (46-116); Anion Gap 11 (7-16); Aspartate Amino Transferase 31 U/L (0-34); BUN/Creatinine Ratio 15 Ratio (12-20); Bilirubin,Total 0.5 mg/dL (0.3-1.2); Blood Urea Nitrogen 12 mg/dL (9-23); Calcium 9.2 mg/dL (8.3-10.6); Calcium (Corrected) 9.2 mg/dL (8.5-10.1); Carbon Dioxide 25.8 mMol/L (20.0-31.0); Chloride 103 mMol/L (98-107); Creatinine (Component) 0.8 mg/dL (0.6-1.3); Globulin 2.5 gm/dL (2.3-3.5); Glucose 141 mg/dL (74-106); Magnesium 1.7 mg/dL (1.6-2.6); Osmolality,Calculated 281 (275-295); Phosphorous 2.5 mg/dL (2.4-5.1); Potassium 3.7 mMol/L (3.4-5.1); Sodium 140 mMol/L (136-145); Total Protein 7.2 gm/dL (5.7-8.2); eGFR > 60 See Note
--- NOTE | 2025-03-19 09:04 | ESPR_ITS ---
<Statement entered by Mely Brennan MD - 03/20/25 14:44> Pt is seen at bedside, continues to have bilateral wheezing on ausculation. Pt is receiving breathing treatments and IV ABX. Urine cultures and BC are pending. Patient was seen and examined by me personally. I have directly supervised and reviewed documentation by the team resident and agree with its findings. ------- Plan of care was discussed with the attending, Dr. Kat Brennan, PGY-2 Documentation for date of: 03/19/25 Subjective Subjective Interval history: * Patient seen and examined at bedside. * Continuing antibiotics. * Weaning oxygen as tolerated. * PT ordered. Exam Vital Signs Temp Pulse Resp BP Pulse Ox O2 Del Method O2 Flow Rate 97.9 F 92 14 141/83 H 100 Nasal Cannula 1 03/19/25 08:28 03/19/25 08:59 03/19/25 08:59 03/19/25 08:28 03/19/25 08:59 03/19/25 08:28 03/19/25 08:59 Narrative Exam General: Awake and in no acute distress. Conversational and non-toxic appearing. Neurologic: GCS 15. Alert and oriented x3, no gross neurological deficit, and patient able to move all 4 extremities. HEENT: Normocephalic, atraumatic, mucous membranes moist. Pupils reactive to light. Heart: Regular rate and rhythm, normal S1 and S2, no murmurs. Lungs: Diffuse wheezes bilaterally. Abdomen: Soft, nondistended, nontender, positive bowel sounds. No guarding or rebound tenderness. Extremities: No edema. 2+ radial and dorsalis pedis pulses bilaterally. Skin: Warm. Dry. No rash or ecchymoses. Objective Labs 03/20/25 05:00 03/20/25 04:55 Labs: Laboratory Results - last 24 hr 03/19/25 03/19/25 03/19/25 02:21 02:50 03:27 WBC 6.1 RBC 4.97 Hgb 12.8 Hct 41.1 MCV 83 MCH 25.8 MCHC 31.1 RDW Std Deviation 53.1 H Plt Count 253 Neut % (Auto) 67 Lymph % (Auto) 18 Nolan % (Auto) 10 Eos % (Auto) 4 Baso % (Auto) 0 Neut # (Auto) 4.1 Lymph # (Auto) 1.1 Nolan # (Auto) 0.6 Eos # (Auto) 0.3 Baso # (Auto) 0.0 Immature Gran # (Auto) 0.01 H Absolute Nucleated RBC 0.00 Immature Gran % 0 Nucleated RBC % 0 ESR 80 H D-Dimer 475 Puncture Site Right Radial ABG pH 7.37 ABG pCO2 46 ABG pO2 58 L* ABG HCO3 27 H ABG O2 Saturation 90 L ABG Base Excess 1 Oxygen Liter Flow 2 FiO2 21 Sodium 141 Potassium 3.9 Chloride 103 Carbon Dioxide 27.8 Anion Gap 10 BUN 11 Creatinine 0.9 Estim Creat Clear Calc Not Performed. eGFR > 60 BUN/Creatinine Ratio [address] Glu mg/dL 157 H Hemoglobin A1c 7.1 H Calculated Osmolality 282 Lactic Acid 1.8 Calcium 9.4 Corrected Calcium 9.4 Phosphorus Magnesium 1.7 Total Bilirubin 0.6 Direct Bilirubin 0.1 AST 35 H ALT 19 Alkaline Phosphatase 110 Troponin I < 0.020 C-Reactive Prot, Quant 6.9 H B-Natriuretic Peptide 44 Total Protein 7.8 Albumin 4.9 H Globulin 2.9 Albumin/Globulin Ratio 1.7 Procalcitonin 0.08 TSH 4.20 Ur Collection Type Urine Color Urine Clarity Urine pH Ur Specific [place] Urine Protein Urine Glucose (UA) Urine Ketones Urine Blood Urine Nitrite Urine Bilirubin Urine Urobilinogen (Auto) Ur Leukocyte Esterase Urine RBC Urine WBC Ur Squamous Epith Cells Urine Bacteria Hyaline Casts Ur Culture Indicated? Influenza A (Rapid) Negative Influenza B (Rapid) Negative SARS-CoV-2 Ag (Rapid) Negative 03/19/25 03/19/25 03/19/25 04:00 04:07 05:00 WBC 7.2 RBC 4.65 Hgb 12.2 Hct 38.9 MCV 84 MCH 26.2 MCHC 31.4 RDW Std Deviation 54.1 H Plt Count 230 Neut % (Auto) 68 Lymph % (Auto) 22 Nolan % (Auto) 7 Eos % (Auto) 3 Baso % (Auto) 0 Neut # (Auto) 4.9 Lymph # (Auto) 1.6 Nolan # (Auto) 0.5 Eos # (Auto) 0.2 Baso # (Auto) 0.0 Immature Gran # (Auto) 0.01 H Absolute Nucleated RBC 0.00 Immature Gran % 0 Nucleated RBC % 0 ESR D-Dimer Puncture Site ABG pH ABG pCO2 ABG pO2 ABG HCO3 ABG O2 Saturation ABG Base Excess Oxygen Liter Flow FiO2 Sodium 140 Potassium 3.7 Chloride 103 Carbon Dioxide 25.8 Anion Gap 11 BUN 12 Creatinine 0.8 Estim Creat Clear Calc Not Performed. eGFR > 60 BUN/Creatinine Ratio 15 [address]ucose [address] Glu mg/dL Hemoglobin A1c Calculated Osmolality 281 Lactic Acid Calcium 9.2 Corrected Calcium 9.2 Phosphorus 2.5 Magnesium 1.7 Total Bilirubin 0.5 Direct Bilirubin AST 31 ALT 17 Alkaline Phosphatase 103 Troponin I C-Reactive Prot, Quant B-Natriuretic Peptide Total Protein 7.2 Albumin 4.7 Globulin 2.5 Albumin/Globulin Ratio 1.9 Procalcitonin TSH Ur Collection Type Clean Catch Urine Color Lt-Yellow Urine Clarity Turbid A Urine pH 6.0 Ur Specific [place] 1.029 Urine Protein 1+ A Urine Glucose (UA) 4+ A Urine Ketones Negative Urine Blood Negative Urine Nitrite Positive Urine Bilirubin Negative Urine Urobilinogen (Auto) Negative Ur Leukocyte Esterase Positive Urine RBC 5 H Urine WBC 174 H Ur Squamous Epith Cells 5 Urine Bacteria Rare Hyaline Casts < 1 Ur Culture Indicated? Yes Influenza A (Rapid) Influenza B (Rapid) SARS-CoV-2 Ag (Rapid) ABG Interpretation ABG results: 03/19/25 02:21 ABG pH 7.37 ABG pCO2 46 ABG pO2 58 L* ABG HCO3 27 H ABG O2 Saturation 90 L ABG Base Excess 1 Quality Measures Quality Measures none Advance care planning discussed with:: patient Assessment & Plan Assessment Current Active Medications: Generic Name Dose Route Start Last Admin Trade Name Freq PRN Reason Stop Dose Admin Acetaminophen 650 mg 03/19/25 04:54 Acetaminophen 325 Mg Tablet PO 04/18/25 04:53 Q6H PRN Fever >100.4 or pain 1-3 Hydrocodone Bitart/Acetaminophen 1 tab 03/19/25 04:54 Hydrocodone/Apap 5/325 Tablet PO 03/24/25 04:53 Q4HR PRN PAIN SCALE 4-6 (Moderate Albuterol/Ipratropium 3 ml 03/19/25 07:00 03/19/25 08:48 Albuterol/Ipratropium (Duoneb) Rt Johanna 3 Ml Nebu INH 04/18/25 06:59 3 ml Q6HRRT [facility] Administration Amlodipine Besylate 10 mg 03/19/25 09:00 Amlodipine Besylate 5 Mg Tablet PO 04/18/25 08:59 QDAY [facility] Atorvastatin Calcium 40 mg 03/19/25 09:00 Atorvastatin Calcium 10 Mg Tablet PO 04/18/25 08:59 QDAY [facility] Dextrose 25 ml 03/19/25 05:08 Dextrose 50%-Water Inj 50 Ml Syringe IV 04/18/25 05:07 Q15MIN PRN BG 50-70 responsive npo pt Dextrose 50 ml 03/19/25 05:08 Dextrose 50%-Water Inj 50 Ml Syringe IV 04/18/25 05:07 Q15MIN PRN BG <50 OR BG <70 & pt unresponsive Docusate Sodium 100 mg 03/19/25 09:00 Docusate Sod 100 Mg Capsule PO 04/18/25 08:59 QDAY [facility] Protocol Duloxetine HCl 30 mg 03/19/25 09:00 Duloxetine Hcl 30 Mg Capsule PO 04/18/25 08:59 QDAY [facility] Glucagon 1 mg 03/19/25 05:08 Glucagon Inj 1 Mg Vial IM Q15MIN PRN BG <70, and no IV access Heparin Sodium (Porcine) 5,000 unit 03/19/25 09:00 Heparin Sod Inj 5000 Unit/Ml Vial SC 04/02/25 08:59 Q12HR [facility] Ceftriaxone Sodium/Dextrose 1 gm in 50 mls @ 100 mls/hr 03/20/25 09:00 Rocephin/D5w 1gm Iv Premix IV 03/27/25 08:59 QDAY [facility] Azithromycin 500 mg/ Sodium 250 mls @ 250 mls/hr 03/20/25 09:00 Chloride IV 03/27/25 08:59 QDAY [facility] Insulin Human Lispro 0 unit 03/19/25 07:30 03/19/25 07:39 Insulin Lispro (Admelog) 1 Unit/0.01 Ml Unit SC 04/18/25 07:29 Not Given ACHS [facility] Protocol Losartan Potassium 100 mg 03/19/25 09:00 Losartan Potassium 25 Mg Tablet PO 04/18/25 08:59 QDAY [facility] Metoprolol Succinate 100 mg 03/19/25 21:00 Metoprolol Succinate Xl 25 Mg Tabcr PO 04/18/25 20:59 HS [facility] Ondansetron HCl 4 mg 03/19/25 04:54 Ondansetron Inj 2 Mg/Ml Inj 2 Ml IVP 04/18/25 04:53 Q6H PRN NAUSEA OR VOMITING Protocol Pantoprazole Sodium 40 mg 03/19/25 09:00 Pantoprazole Inj 40 Mg Vial IVP 04/18/25 08:59 QDAY [facility] Prednisone 40 mg 03/19/25 09:00 Prednisone 20 Mg Tablet PO 04/18/25 08:59 QDAY [facility] Pregabalin 150 mg 03/19/25 06:00 03/19/25 06:15 Pregabalin 75 Mg Capsule PO 04/18/25 05:59 150 mg TID [facility] Administration Plan Summary: 79 y/o female with Hx of HTN, hypercholesterolemia, Type II DM, who lived with an excessive smoker who presented with fever, cough, and shortness of breath x 5 days on 03/19/2025. Patient was admitted for acute hypoxic respiratory failure secondary to bronchitis versus community-acquired pneumonia. #Acute hypoxic respiratory failure secondary to #Bronchitis versus #Community-acquired pneumonia * Patient denies history of COPD or asthma, wheezing is worse at night than the morning. * Lived with a smoker for many decades. * Diffuse bilateral wheezes on physical exam * ABG on arrival pH 7.37 pCO2 46 pO2 58 (L) HCO3 27 (H) O2 sat 90% (L). Plan: * Ceftriaxone 1g IV QD (03/19 - * Azithromycin 500 (03/19 - * Duonebs Q6 * Prednisone 40mg PO QD * Blood culture pending * Wean oxygen as tolerated #UTI - Asymptomatic * Patient did not endorse any dysuria. * Takes synjardy, may increase frequency of UTI due to glucose in the urine * UA turbid +1 protein +4 glucose 5 RBC 174 WBC Nitrite+ LE +. Plan: * Ceftiaxone will cross cover * Urine culture pending #Hx of HTN Plan: * Home amlodipine 10mg P OQD * Home Losartan 100mg PO QD * Home Metoprolol 100mg PO HS #Hx of T2DM * A1C 7.1. * Patient thinks she is pre-diabetic. Plan: * Education * ISS * Carb consistent diet #Hx of hypercholesterolemia Plan: * Home Atorvastatin 40mg PO QD #Hx of Neuropathy * Has neuronal foot pain and itching Plan: * Continue home pregabalin 150mg TID * Continue home duloxetine 30mg PO QD Health Maintenance: Code status: DNR DVT prophylaxis: Heparin 5,000 units SubQ every 12 hours GI prophylaxis: Protonix 40 Diet: Carb consistent [place]: None Lines: PIV Supplemental O2: NC PRN Disposition: Telemetry monitoring floor. Continuing ceftriaxone azithromycin. PT ordered. Weaning oxygen as tolerated. Patient was seen and discussed with my attending physician Dr. Kat OLMSTEAD and my senior resident Dr. Mika OLMSTEAD PGY-2. Jalen Hough DO PGY-1. Attending Provider Attestation/Addendum I have seen and examined the patient. I was physically present for the oscar portions of the services provided including history, physical exam, diagnosis, treatment plans and orders. I agree with assessment and plan of care as documented by residents. Even though this this note was carefully revised there may still be minor errors in curing press maintainer due to voice recognition software. Emanuel Stephens MD
[2025-03-19] MEDS: HEPARIN SOD INJ 5000 UNIT/ML VIAL SC ×2 (09:12→21:12)
[2025-03-19] MEDS: ATORVASTATIN CALCIUM 10 MG TABLET 40 MG PO (09:13)
[2025-03-19] MEDS: LOSARTAN POTASSIUM 25 MG TABLET 100 MG PO (09:13)
[2025-03-19] MEDS: DOCUSATE SOD 100 MG CAPSULE PO (09:14)
[2025-03-19] MEDS: DULoxetine HCL 30 MG CAPSULE PO (12:24)
[2025-03-19] MEDS: Magnesium Sulfate 4 GM Ivpb 4 GM/50 ML BAG IV (12:25)
[2025-03-19] MEDS: INSULIN LISPRO (AdmeLOG) 1 UNIT/0.01 ML UNIT SC ×3 (12:26→21:12)
--- NOTE | 2025-03-19 15:32 | PC.NURSE ---
Daughter to bring medications for med rec
[2025-03-20] VITALS (18 sets, daily range): BP systolic 115–145; BP diastolic 58–83; PULSE 10–105; RESP 16–97; TEMP 36.4–36.6; O2SAT 93–100; BMI 13.0
[2025-03-20] MEDS: ALBUTEROL/IPRATROPIUM (Duoneb) RT SOL 3 ML NEBU INH ×6 (01:02→23:24)
[2025-03-20] MEDS: PREGABALIN 75 MG CAPSULE 150 MG PO ×3 (05:29→21:10)
[2025-03-20 05:36] LABS: Basophils # (Auto) 0.0 Thou/mm3 (0.0-0.2); Basophils % (Auto) 0 % (0-2.5); Eosinophils # (Auto) 0.0 Thou/mm3 (0.0-0.5); Eosinophils % (Auto) 0 % (0-10); Hematocrit 34.4 % (36.0-46.0); Hemoglobin 10.6 g/dL (12.0-16.0); Immature Granulocytes Auto 0.01 Thou/mm3 (0.00-0.00); Lymphocytes # (Auto) 0.7 Thou/mm3 (1.0-4.8); Lymphocytes % (Auto) 11 % (10-50); Mean Corpuscular HGB Conc 30.8 g/dl (31.0-37.0); Mean Corpuscular Hemoglobin 25.9 pg (25.0-35.0); Mean Corpuscular Volume 84 fL (80-100); Monocytes # (Auto) 0.6 Thou/mm3 (0.0-0.8); Monocytes % (Auto) 10 % (0-12); Neutrophils # (Auto) 5.2 Thou/mm3 (1.8-7.7); Neutrophils % (Auto) 79 % (37-80); Nucleated Red Blood Cell # 0.00 Thou/mm3 (0.00-0.00); Nucleated Red Blood Cell % 0 /100 WBC (0); Platelet Count 225 Thou/mm3 (140-440); RDW Standard Deviation 54.9 fL (36.4-46.3); Red Blood Count 4.10 Miln/mm3 (4.00-5.20); White Blood Count 6.5 Thou/mm3 (3.6-11.0)
[2025-03-20 06:01] LABS: Alanine Aminotransferase 19 U/L (10-49); Albumin, Serum 4.2 gm/dL (3.4-4.8); Albumin/Globulin Ratio 1.9 (1.2-2.2); Alkaline Phosphatase 92 U/L (46-116); Anion Gap 9 (7-16); Aspartate Amino Transferase 19 U/L (0-34); BUN/Creatinine Ratio 21 Ratio (12-20); Bilirubin,Total 0.5 mg/dL (0.3-1.2); Blood Urea Nitrogen 17 mg/dL (9-23); Calcium 9.2 mg/dL (8.3-10.6); Calcium (Corrected) 9.2 mg/dL (8.5-10.1); Carbon Dioxide 25.9 mMol/L (20.0-31.0); Chloride 105 mMol/L (98-107); Creatinine (Component) 0.8 mg/dL (0.6-1.3); Globulin 2.2 gm/dL (2.3-3.5); Glucose 153 mg/dL (74-106); Magnesium 2.2 mg/dL (1.6-2.6); Osmolality,Calculated 283 (275-295); Phosphorous 3.2 mg/dL (2.4-5.1); Potassium 4.4 mMol/L (3.4-5.1); Sodium 140 mMol/L (136-145); Total Protein 6.4 gm/dL (5.7-8.2); eGFR > 60 See Note
[2025-03-20] MEDS: LOSARTAN POTASSIUM 25 MG TABLET 100 MG PO (08:44)
[2025-03-20] MEDS: DULoxetine HCL 30 MG CAPSULE PO (08:45)
[2025-03-20] MEDS: ATORVASTATIN CALCIUM 10 MG TABLET 40 MG PO (08:45)
[2025-03-20] MEDS: DOCUSATE SOD 100 MG CAPSULE PO (08:45)
[2025-03-20] MEDS: HEPARIN SOD INJ 5000 UNIT/ML VIAL SC ×2 (08:45→21:10)
[2025-03-20] MEDS: cefTRIAXone/D5w 1gm IV premix 1 GM/50 ML BAG IV (08:46)
[2025-03-20] MEDS: AZITHROMYCIN INJ 500 MG in SODIUM CHLORIDE 0.9% 250 ML 250 ML 250 MG IV (09:49)
[2025-03-20] MEDS: INSULIN LISPRO (AdmeLOG) 1 UNIT/0.01 ML UNIT SC ×3 (11:52→21:11)
--- NOTE | 2025-03-20 14:41 | PD.RESPRO ---
Documentation for date of: 03/20/25 Subjective Subjective Interval history: No acute overnight events. Patient seen and examined at bedside this morning. Patient is saturating on room air however loud wheezing is heard even without auscultation to the lungs. Patient denies any shortness of breath. Vitals are stable, labs are reviewed and are stable. Urine culture is pending blood cultures negative at 24 hours. Will continue azithromycin and Rocephin. Will also order PT Exam Vital Signs Temp Pulse Resp BP Pulse Ox O2 Del Method O2 Flow Rate 97.5 F 84 18 145/61 H 94 L Room Air 2 03/20/25 11:49 03/20/25 14:14 03/20/25 14:14 03/20/25 11:49 03/20/25 14:14 03/20/25 11:49 03/20/25 06:33 Narrative Exam General: A and O x 4, pleasant elderly [place]er-speaking female. Awake and in no acute distress. Conversational and non-toxic appearing. Neurologic: No neurologic deficit noted HEENT: Normocephalic, atraumatic, mucous membranes moist. Pupils reactive to light. Heart: Regular rate and rhythm, normal S1 and S2, no murmurs. Lungs: Diffuse wheezes bilaterally. Abdomen: Soft, nondistended, nontender, positive bowel sounds. No guarding or rebound tenderness. Extremities: No edema. 2+ radial and dorsalis pedis pulses bilaterally. Skin: Warm. Dry. No rash or ecchymoses. Objective Labs 03/21/25 05:13 03/21/25 05:13 Labs: Laboratory Results - last 24 hr 03/20/25 03/20/25 04:55 05:00 WBC 6.5 RBC 4.10 Hgb 10.6 L Hct 34.4 L MCV 84 MCH 25.9 MCHC 30.8 L RDW Std Deviation 54.9 H Plt Count 225 Neut % (Auto) 79 Lymph % (Auto) 11 [place] % (Auto) 10 Eos % (Auto) 0 Baso % (Auto) 0 Neut # (Auto) 5.2 Lymph # (Auto) 0.7 L [place] # (Auto) 0.6 Eos # (Auto) 0.0 Baso # (Auto) 0.0 Immature Gran # (Auto) 0.01 H Absolute Nucleated RBC 0.00 Immature Gran % 0 Nucleated RBC % 0 Sodium 140 Potassium 4.4 D Chloride 105 Carbon Dioxide 25.9 Anion Gap 9 BUN 17 Creatinine 0.8 Estim Creat Clear Calc Not Performed. eGFR > 60 BUN/Creatinine Ratio 21 H Glucose 153 H Calculated Osmolality 283 Calcium 9.2 Corrected Calcium 9.2 Phosphorus 3.2 Magnesium 2.2 Total Bilirubin 0.5 AST 19 ALT 19 Alkaline Phosphatase 92 Total Protein 6.4 Albumin 4.2 D Globulin 2.2 L Albumin/Globulin Ratio 1.9 ABG Interpretation ABG results: 03/19/25 02:21 ABG pH 7.37 ABG pCO2 46 ABG pO2 58 L* ABG HCO3 27 H ABG O2 Saturation 90 L ABG Base Excess 1 Quality Measures Quality Measures VTE prophylaxis Advance care planning discussed with:: patient Assessment & Plan Assessment Current Active Medications: Generic Name Dose Route Start Last Admin Trade Name Freq PRN Reason Stop Dose Admin Acetaminophen 650 mg 03/19/25 04:54 Acetaminophen 325 Mg Tablet PO 04/18/25 04:53 Q6H PRN Fever >100.4 or pain 1-3 Hydrocodone Bitart/Acetaminophen 1 tab 03/19/25 04:54 Hydrocodone/Apap 5/325 Tablet PO 03/24/25 04:53 Q4HR PRN PAIN SCALE 4-6 (Moderate Albuterol/Ipratropium 3 ml 03/20/25 11:00 03/20/25 14:14 Albuterol/Ipratropium (Duoneb) Rt Johanna 3 Ml Nebu INH 04/19/25 10:59 3 ml Q4HRRT TAVO Administration Amlodipine Besylate 10 mg 03/19/25 09:00 03/20/25 08:45 Amlodipine Besylate 5 Mg Tablet PO 04/18/25 08:59 10 mg QDAY TAVO Administration Atorvastatin Calcium 40 mg 03/19/25 09:00 03/20/25 08:45 Atorvastatin Calcium 10 Mg Tablet PO 04/18/25 08:59 40 mg QDAY TAVO Administration Dextrose 25 ml 03/19/25 05:08 Dextrose 50%-Water Inj 50 Ml Syringe IV 04/18/25 05:07 Q15MIN PRN BG 50-70 responsive npo pt Dextrose 50 ml 03/19/25 05:08 Dextrose 50%-Water Inj 50 Ml Syringe IV 04/18/25 05:07 Q15MIN PRN BG <50 OR BG <70 & pt unresponsive Docusate Sodium 100 mg 03/19/25 09:00 03/20/25 08:45 Docusate Sod 100 Mg Capsule PO 04/18/25 08:59 100 mg QDAY TAVO Administration Protocol Duloxetine HCl 30 mg 03/19/25 09:00 03/20/25 08:45 Duloxetine Hcl 30 Mg Capsule PO 04/18/25 08:59 30 mg QDAY TAVO Administration Glucagon 1 mg 03/19/25 05:08 Glucagon Inj 1 Mg Vial IM Q15MIN PRN BG <70, and no IV access Heparin Sodium (Porcine) 5,000 unit 03/19/25 09:00 03/20/25 08:45 Heparin Sod Inj 5000 Unit/Ml Vial SC 04/02/25 08:59 5,000 unit Q12HR TAVO Administration Ceftriaxone Sodium/Dextrose 1 gm in 50 mls @ 100 mls/hr 03/20/25 09:00 03/20/25 08:46 Rocephin/D5w 1gm Iv Premix IV 03/27/25 08:59 100 mls/hr QDAY TAVO Administration Azithromycin 500 mg/ Sodium 250 mls @ 250 mls/hr 03/20/25 09:00 03/20/25 09:49 Chloride IV 03/27/25 08:59 250 mls/hr QDAY TAVO Administration Insulin Human Lispro 0 unit 03/19/25 07:30 03/20/25 11:52 Insulin Lispro (Admelog) 1 Unit/0.01 Ml Unit SC 04/18/25 07:29 2 unit ACHS TAVO Administration Protocol Losartan Potassium 100 mg 03/19/25 09:00 03/20/25 08:44 Losartan Potassium 25 Mg Tablet PO 04/18/25 08:59 100 mg QDAY TAVO Administration Metoprolol Succinate 100 mg 03/19/25 21:00 03/19/25 21:23 Metoprolol Succinate Xl 25 Mg Tabcr PO 04/18/25 20:59 Not Given HS TAVO Ondansetron HCl 4 mg 03/19/25 04:54 Ondansetron Inj 2 Mg/Ml Inj 2 Ml IVP 04/18/25 04:53 Q6H PRN NAUSEA OR VOMITING Protocol Pantoprazole Sodium 40 mg 03/19/25 09:00 03/20/25 08:45 Pantoprazole Inj 40 Mg Vial IVP 04/18/25 08:59 40 mg QDAY TAVO Administration Prednisone 40 mg 03/19/25 09:00 03/20/25 08:44 Prednisone 20 Mg Tablet PO 04/18/25 08:59 40 mg QDAY TAVO Administration Pregabalin 150 mg 03/19/25 06:00 03/20/25 14:30 Pregabalin 75 Mg Capsule PO 04/18/25 05:59 150 mg TID TAVO Administration Plan Ms. Morrison is a 79 y/o female with Hx of HTN, hypercholesterolemia, Type II DM, who lived with an excessive smoker who presented with fever, cough, and shortness of breath x 5 days on 03/19/2025. Patient was admitted for acute hypoxic respiratory failure secondary to bronchitis versus community-acquired pneumonia. #Acute hypoxic respiratory failure secondary to #Bronchitis versus #Community-acquired pneumonia -Patient denies history of COPD or asthma, wheezing is worse at night than the morning. -Lived with a smoker for many decades. -Diffuse bilateral wheezes on physical exam -ABG on arrival pH 7.37 pCO2 46 pO2 58 (L) HCO3 27 (H) O2 sat 90% (L). Plan: -Azithromycin 500 (03/19 - -Duonebs Q4HR -Prednisone 40mg PO QD -Blood culture negative at 24 hours -Supplemental oxygen as needed # Uncomplicated UTI -Patient did not endorse any dysuria. -Takes synjardy, may increase frequency of UTI due to glucose in the urine -UA turbid +1 protein +4 glucose 5 RBC 174 WBC Nitrite+ LE +. Plan: --Ceftriaxone 1g IV QD (03/19 - -Urine culture pending # Primary hypertension -Resumed home amlodipine 10mg P OQD, Losartan 100mg PO QD, Metoprolol 100mg PO HS # Ljo-nbvbodq-ekcjzqsqy type 2 diabetes A1C 7.1 on admission Patient does not take any medications at home Plan: -Diabetic education education -ISS -Carb consistent diet -On discharge patient may benefit from metformin # Hyperlipidemia -Resumed home atorvastatin 40mg PO QD #Hx of Neuropathy -Has neuronal foot pain and itching Plan: -Continue home pregabalin 150mg TID -Continue home duloxetine 30mg PO QD Health Maintenance: Code status: DNR DVT prophylaxis: Heparin 5,000 units SubQ every 12 hours GI prophylaxis: Protonix 40 Diet: Carb consistent [place]: None Lines: PIV Supplemental O2: NC PRN Disposition: Telemetry monitoring floor. Continuing ceftriaxone azithromycin. PT ordered. Assessment and plan discussed with my attending physician Dr. Kat Brennan (PGY-2)- Internal medicine resident Attending Provider Attestation/Addendum I have seen and examined the patient. I was physically present for the oscar portions of the services provided including history, physical exam, diagnosis, treatment plans and orders. I agree with assessment and plan of care as documented by residents. Even though this this note was carefully revised there may still be minor errors in battery plate assembler due to voice recognition software. Emanuel Stephens MD
[2025-03-20] MEDS: METOPROLOL SUCCINATE XL 25 MG TABCR 100 MG PO (21:09)
[2025-03-21] VITALS (11 sets, daily range): BP systolic 131–156; BP diastolic 67–93; PULSE 58–93; RESP 15–99; TEMP 36.1–36.3; O2SAT 93–99; BMI 31.0
[2025-03-21] MEDS: ALBUTEROL/IPRATROPIUM (Duoneb) RT SOL 3 ML NEBU INH ×5 (03:58→18:37)
[2025-03-21] MEDS: PREGABALIN 75 MG CAPSULE 150 MG PO (05:05)
[2025-03-21 05:56] LABS: Basophils # (Auto) 0.0 Thou/mm3 (0.0-0.2); Basophils % (Auto) 1 % (0-2.5); Eosinophils # (Auto) 0.0 Thou/mm3 (0.0-0.5); Eosinophils % (Auto) 0 % (0-10); Hematocrit 33.5 % (36.0-46.0); Hemoglobin 10.4 g/dL (12.0-16.0); Immature Granulocytes Auto 0.03 Thou/mm3 (0.00-0.00); Lymphocytes # (Auto) 1.4 Thou/mm3 (1.0-4.8); Lymphocytes % (Auto) 24 % (10-50); Mean Corpuscular HGB Conc 31.0 g/dl (31.0-37.0); Mean Corpuscular Hemoglobin 25.7 pg (25.0-35.0); Mean Corpuscular Volume 83 fL (80-100); Monocytes # (Auto) 0.4 Thou/mm3 (0.0-0.8); Monocytes % (Auto) 7 % (0-12); Neutrophils # (Auto) 3.9 Thou/mm3 (1.8-7.7); Neutrophils % (Auto) 67 % (37-80); Nucleated Red Blood Cell # 0.00 Thou/mm3 (0.00-0.00); Nucleated Red Blood Cell % 0 /100 WBC (0); Platelet Count 220 Thou/mm3 (140-440); RDW Standard Deviation 54.5 fL (36.4-46.3); Red Blood Count 4.05 Miln/mm3 (4.00-5.20); White Blood Count 5.8 Thou/mm3 (3.6-11.0)
[2025-03-21 06:41] LABS: Alanine Aminotransferase 15 U/L (10-49); Albumin, Serum 4.5 gm/dL (3.4-4.8); Albumin/Globulin Ratio 2.0 (1.2-2.2); Alkaline Phosphatase 89 U/L (46-116); Anion Gap 10 (7-16); Aspartate Amino Transferase 19 U/L (0-34); BUN/Creatinine Ratio 23 Ratio (12-20); Bilirubin,Total 0.5 mg/dL (0.3-1.2); Blood Urea Nitrogen 16 mg/dL (9-23); Calcium 9.0 mg/dL (8.3-10.6); Calcium (Corrected) 9.0 mg/dL (8.5-10.1); Carbon Dioxide 26.8 mMol/L (20.0-31.0); Chloride 107 mMol/L (98-107); Creatinine (Component) 0.7 mg/dL (0.6-1.3); Globulin 2.2 gm/dL (2.3-3.5); Glucose 130 mg/dL (74-106); Magnesium 2.2 mg/dL (1.6-2.6); Osmolality,Calculated 290 (275-295); Phosphorous 2.7 mg/dL (2.4-5.1); Potassium 3.9 mMol/L (3.4-5.1); Sodium 144 mMol/L (136-145); Total Protein 6.7 gm/dL (5.7-8.2); eGFR > 60 See Note
[2025-03-21] MEDS: ATORVASTATIN CALCIUM 10 MG TABLET 40 MG PO (08:47)
[2025-03-21] MEDS: HEPARIN SOD INJ 5000 UNIT/ML VIAL SC (08:47)
[2025-03-21] MEDS: AZITHROMYCIN INJ 500 MG in SODIUM CHLORIDE 0.9% 250 ML 250 ML 250 MG IV (08:47)
[2025-03-21] MEDS: cefTRIAXone/D5w 1gm IV premix 1 GM/50 ML BAG IV (08:48)
[2025-03-21] MEDS: DULoxetine HCL 30 MG CAPSULE PO (08:48)
[2025-03-21] MEDS: LOSARTAN POTASSIUM 25 MG TABLET 100 MG PO (08:49)
[2025-03-21] MEDS: DOCUSATE SOD 100 MG CAPSULE PO (08:50)
--- NOTE | 2025-03-21 12:16 | XR_ITS ---
Examination: Venous duplex lower extremity sonogram, bilateral. Date and time of exam: March 21, 2025, 1552 hours INDICATIONS: Shortness of breath beginning 5 days ago, diagnosis COPD Technique: Multiple sonographic images of the deep venous system have been obtained. B-mode/2-D grayscale imaging of vascular structures and Doppler spectral analysis (waveforms) and color performed Both legs are examined. Findings: Deep venous systems do not demonstrate abnormal echogenicity. All visualized deep veins exhibit compressibility. All visualized deep veins exhibit augmentation. Impression: Negative for deep vein thrombosis
[2025-03-21] MEDS: INSULIN LISPRO (AdmeLOG) 1 UNIT/0.01 ML UNIT SC ×2 (12:18→17:45)
--- NOTE | 2025-03-21 12:51 | ESDS_ITS ---
<Statement entered by Reggie Ibarra MD - 03/21/25 12:54> Note reviewed and agree with care plan as documented. Please refer to the note below for further details. Plan discussed with attending physician Dr. Kat Ibarra MD PGY-2 Internal Medicine Planned Discharge Date 03/21/25 DS: Providers Provider Date of admission: 03/19/25 04:55 Primary care physician: Annelise Herman MD Admitting Provider: Ovidio Sharp MD Attending Provider on Admission: Ovidio Sharp MD Consults: 03/19/25 08:05 Referral Registered Dietitian Routine Comment: 03/19/25 12:00 Referral Physical Therapy Routine Comment: Physician Instructions: 03/19/25 15:16 Referral Physical Therapy Routine Comment: Physician Instructions: Referral Respiratory Therapy Routine Comment: 03/20/25 13:56 Referral Physical Therapy Routine Comment: duplicate order. PT eval completed 03/20/25 Physician Instructions: Attending Provider on DC: Emanuel Stephens MD Discharging Provider: Emanuel Stephens MD DS: Diagnosis Problem List Completed Was Problem List Reviewed/Reconciled?: Yes Hospital Course Hospital Course Hospital course: Patient is an 79 y/o female with Hx of HTN, hypercholesterolemia Type II DM, who lived with an excessive smoker presents with fever, cough, and shortness of breath x 5 days admitted for acute hypoxic respiratory failure. Patient was initially found to have hypoxemia on abg with mildly low o2 saturations to 90%. Patient's CXR showed pneumonia at the right base. Patient was given antibiotics, duonebs and steroid for her breathing and to cover her pneumonia. Patient was also found to have a UTI (ESBL)which was covered with antibiotics as well. Over the hospital course the patient's respiratory status has improved and patient is in stable condition ready for discharge. Patient will be prescribed inhalers for outpatient use for suspected new onset COPD. Patient will be prescribed outpatient antibiotics to cover for UTI. Discharge Instructions Patient has been prescribed Trelegy inhaler and rescue inhaler. Take as prescribed. Patient has been prescribed Antibiotic. Take as prescribed. Patient is to follow up with he primary care physician in 5-7 days.? If patient develops any similar symptoms or any other concerning symptoms, go to the emergency department for evaluation and treatment. Admission Diagnosis #Acute hypoxic respiratory failure #Bronchitis #Community-acquired pneumonia # UTI, ESBL # Primary hypertension # Kwi-qrpyvcv-lebdmetcy type 2 diabetes # Hyperlipidemia # Hx of Neuropathy Patient plan of care was discussed with the attending physician, Dr. Stephens & resident physician Dr. Weston Chilel MD PGY-1 Time Spent with Patient Time attestation: Total time spent providing and/or coordinating discharge services: 35 minutes Time spent: Greater than 30 minutes Exam Vital Signs Temp Pulse Resp BP Pulse Ox O2 Del Method O2 Flow Rate 97.0 F 62 20 131/67 H 99 Room Air 2 03/21/25 08:00 03/21/25 11:10 03/21/25 11:10 03/21/25 08:49 03/21/25 11:10 03/21/25 08:00 03/20/25 06:33 Narrative Exam General: A&Ox4, pleasant elderly Cymro-speaking female. Awake and in no acute distress. Conversational and non-toxic appearing. Neurologic: No neurologic deficit noted HEENT: Normocephalic, atraumatic, mucous membranes moist. Pupils reactive to light. Heart: Regular rate and rhythm, normal S1 and S2, no murmurs. Lungs: Lungs CTAB Abdomen: Soft, nondistended, nontender, positive bowel sounds. No guarding or rebound tenderness. Extremities: No edema. 2+ radial and dorsalis pedis pulses bilaterally. Skin: Warm. Dry. No rash or ecchymoses. Discharge Plan Plan Patient Disposition: HOME (Self Care) Patient condition on transfer: Stable Care Plan Goals: Al paciente se le borja recetado un inhalador Trelegy (jennifer vez al d?a) y un inhalador de rescate (seg?n sea necesario). Se le borja recetado el antibi?giorgi levofloxacino 500 mg jennifer vez al d?a bryan 7 d?as. El paciente debe acudir a jennifer consulta de seguimiento con mahajan m?dico de cabecera en 5 a 7 d?as. Si el paciente presenta s?ntomas similares o cualquier otro s?ntoma preocupante, acuda a urgencias para evaluaci?n y tratamiento. Prescriptions/Referrals Prescriptions/Med Rec: New levofloxacin 500 mg tablet 500 mg PO Q24H 7 Days Qty: 7 0RF Trelegy Ellipta 100-62.5-25 mcg blister with device 1 inh inhalation Q24H Qty: 60 0RF albuterol sulfate 2.5 mg /3 mL (0.083 %) solution for nebulization 2.5 mg inhalation QID PRN (Reason: shortness of breath or wheezing) Qty: 180 0RF Continued metoprolol succinate 100 mg Tablet Extended Release 24 Hr 100 mg PO HS amlodipine 5 mg Tablet 10 mg PO QDAY losartan 100 mg Tablet 100 mg PO QDAY pregabalin 200 mg Capsule 150 mg PO BID atorvastatin [Lipitor] 20 mg Tablet 40 mg PO QDAY duloxetine 30 mg capsule,delayed release(DR/EC) 30 mg PO QDAY Patient Comments: take 1 capsule by mouth once daily omeprazole 40 mg capsule,delayed release(DR/EC) 40 mg PO QDAY Patient Comments: take 1 capsule by mouth once daily BEFORE A MEAL Synjardy XR 12.5-1,000 mg tablet, IR - ER, biphasic 24hr 1 tab PO BID No Action cetirizine 10 mg Tablet 10 mg PO QDAY Referrals: Annelise Herman MD [Primary Care Provider] Patient/Caregiver Discharge Instructions Print Language: Cymro Stand Alone Forms: [place] Award Info., Patient Portal Info Letter Discharge Order Discharge Orders: Discharge (Routine); Ordered 03/21/25 Ordered By: Reggie Ontiveros Ncdong Quality Discharge Quality Measures VTE prophylaxis Attestestation Attestation I have seen and examined the patient. I was physically present for the oscar portions of the services provided including history, physical exam, diagnosis, treatment plans and orders. I agree with assessment and plan of care as documented by residents. Even though this this note was carefully revised there may still be minor errors in [place] and silverware salesperson due to voice recognition software. Emanuel Stephens MD
--- NOTE | 2025-03-21 14:49 | PC.SS ---
Patient is alert/oriented. Patient is Vietnamese speaking only. [employer] phone line used. Patient was admitted for acute hypoxic resp. failure. Patient states she resides with her daughter, Shaneka. Patient is independent with ADL's. Patient states she uses a walker with seat at home. Transportation is provided by family. Patient worked with PT and ambulated over 60 feet. PCP: Dr. Herman in the [facility]. Discharge plan is to return home today. D/c orders are in. Alt medical decision maker: DaughterShaneka,
== END 2025-03-21 19:16 | disposition home or self-care (01) | DRG 193 ==
LOC: SERX 04:28 → SERHOLD 05:06 → S3NX 13:06
PROVIDERS: Admitting Provider Student in an Organized Health Care Education/Training Program; Emergency Provider Emergency Medicine; PCP Family Medicine; Visit Provider Student in an Organized Health Care Education/Training Program
DX: J18.9 Pneumonia, unspecified organism (principal); J96.01 Acute respiratory failure with hypoxia; N39.0 Urinary tract infection, site not specified; I10 Essential (primary) hypertension; K21.9 Gastro-esophageal reflux disease without esophagitis; M19.90 Unspecified osteoarthritis, unspecified site; E11.42 Type 2 diabetes mellitus with diabetic polyneuropathy; J40 Bronchitis, not specified as acute or chronic; Z77.22 Contact with and (suspected) exposure to environmental tobacco smoke (acute) (chronic); E78.00 Pure hypercholesterolemia, unspecified; Z66 Do not resuscitate; Z87.891 Personal history of nicotine dependence
CPT/HCPCS: 36415; 36600; 71045; 80053; 81001; 82248; 82803; 83036; 83605; 83735; 83880; 84100; 84145; 84443; 84484; 85025; 85379; 85652; 86140; 87040; 87077; 87086; 87186; 87502; 87811; 93005; 93970; 94640; 94664; 96360; 96365; 96366; 97162; 99285; A9270; J0456; J0696; J1644; J1815; J2405; J2470; J2919; J3475; J7050; J7512